=== PATIENT | male | born 1980 ===

== ENCOUNTER 2016-11-29 12:03 | Emergency (ER) | payer OTHER ==
--- NOTE | 2016-11-29 14:24 | UC ---
I, Oh,Soainsley, scribed for Tyler Richard MD on 11/29/16 at 1422 . Skin Complaint HPI - HPI Summary HPI Summary: THis 36 y/o male presents to [facility] for tick bite on LLE calf less than 2 weeks ago. Pt states that tick was not engorged and probably on bite site less than a day. Negative general myalgia, arthralgia, fever, or chills. Pt removed it himself. Pt became concerned when he noticed rash while taking a shower this morning. Negative PMHx. NKDA is reviewed and confirmed. Adverse reaction to doxycycline is discussed, and pt expresses understanding. - History of Current Complaint Chief Complaint: UCSkin Stated Complaint: TICK BITE Hx Obtained From: Patient - Allergy/Home Medications Allergies/Adverse Reactions: Allergies Allergy/AdvReac Type Severity Reaction Status Date / Time No Known Allergies Allergy Verified 11/29/16 13:44 Review of Systems Constitutional: Negative Skin: Other - tick bite on LLE calf Eyes: Negative ENT: Negative Respiratory: Negative Cardiovascular: Negative Gastrointestinal: Negative Genitourinary: Negative Motor: Negative Neurovascular: Negative Musculoskeletal: Negative Neurological: Negative Psychological: Negative All Other Systems Reviewed And Are Negative: Yes PMH/Surg Hx/FS Hx/Imm Hx Previously Healthy: Yes - PT denies any pMHx - Surgical History Surgical History: Yes Surgery Procedure, Year, and Place: DEVIATED SEPTUM - Family History Known Family History: Negative: Cardiac Disease - Social History Alcohol Use: Occasionally Substance Use Type: None Smoking Status (MU): Never Smoked Tobacco Physical Exam Triage Information Reviewed: Yes Vital Signs: Initial Vital Signs Temp 98.9 F 11/29/16 13:44 Pulse 61 11/29/16 13:44 Resp 16 11/29/16 13:44 BP 136/96 11/29/16 13:44 Pulse Ox 99 11/29/16 13:44 Vital Signs Reviewed: Yes - Additional Comments The patient is well-nourished in no acute distress and in no acute pain. The skin is noted with bull's eye rash on medial aspect of LLE calf. HEENT: The head is normocephalic and atraumatic. The pupils are equal and reactive. The conjunctivae are clear and without drainage. Nares are patent and without drainage. Mouth reveals moist mucous membranes and the throat is without erythema and exudate. The external ears are intact. The ear canals are patent and without drainage. The tympanic membranes are intact. Neck is supple with full range of motion and non-tender. There are no carotid bruits. There is no neck vein distension. Respiratory: Chest is non-tender. Lungs are clear to auscultation and breath sounds are symmetrical and equal. Musculoskeletal: There is no back pain noted. Extremities are non-tender with full range of motion. There is good capillary refill. There is no peripheral edema or calf tenderness elicited. Neurological: Patient is alert and oriented to person, place and time. The patient has symmetrical motor strength in all four extremities. Cranial nerves are grossly intact. Deep tendon reflexes are symmetrical and equal in all four extremities. Psychiatric: The patient has an appropriate affect and does not exhibit any anxiety or depression. Course/Dx - Differential Diagnoses - Skin Complaint Differential Diagnoses: Contact Dermatitis, Other - erythema migrans, lymes disease - Diagnoses Provider Diagnoses: erythema migrans, lymes's disease, contact dermatitis left hand Discharge - Discharge Plan Condition: Stable Disposition: HOME Prescriptions: DOXYcycline CAP(*) [DOXYcycline 100MG CAP(*)] 100 mg PO BID #28 cap Patient Education Materials: Doxycycline (By mouth), Lyme Disease (ED), Tick Bite (ED) Referrals: Luis Smith MD [Medical Doctor] - 2 Days The documentation as recorded by the Jac almodovar Soohyun accurately reflects the service I personally performed and the decisions made by , Tyler Richard MD.
== END 2016-11-29 14:28 | disposition home or self-care (01) ==
LOC: UCEAST 12:03
DX: A26.0 Cutaneous erysipeloid (principal); A69.20 Lyme disease, unspecified; L25.9 Unspecified contact dermatitis, unspecified cause
CPT/HCPCS: 99202; G0463